=== PATIENT | female | born 1945 | race Caucasian/White ===

== ENCOUNTER → 2020-09-13 12:08 | Outpatient (CLI) | payer MEDICARE, SELFPAY ==
--- NOTE | ~2020-09-13 | XR_ITS ---
EXAMINATION: XR chest 2V DATE: 09/13/2020 13:38 INDICATION: Recurrent acute iridocyclitis, left eye. TECHNIQUE: Frontal and lateral views of the chest were obtained. COMPARISON: None. FINDINGS: The chest demonstrates clear lungs without pneumonia, pleural effusion, or pneumothorax. Th e heart size is normal. IMPRESSION: 1. No acute cardiopulmonary disease. Reviewed, dictated and finalized at location A.
== END ==
DX: H20.022 Recurrent acute iridocyclitis, left eye (principal)
CPT/HCPCS: 71046